=== PATIENT | male | born 1965 | race Caucasian/White ===

== ENCOUNTER → 2017-03-05 | Outpatient (CLI) | payer BC ==
--- NOTE | 2017-03-05 22:35 | PN ---
Ezequiel Allen is a 51-year-old male patient coming in for a yearly check regarding obstructive sleep apnea. Compliancy check and follow-up. He has severe JUAN JOSE with an AHI of 17 and currently on CPAP pressure of 9. Despite his 11 to 12 pounds weight loss. The patient states that he is snoring while on CPAP treatment and the treatment has not been as effective and he seems to be requiring higher pressure. On his compliance data, he is averaging around 7.6 hours of CPAP use every night and his CPAP use for more than 4 hours is more than 90%. He is utilizing an AirFit P10 nose pillow. He is wetting his CPAP every night. He is waking up refreshed, although he is expecting and anticipating better response. It is likely the pressure may need to be increased especially that he is snoring while on the treatment. No other complaints otherwise for now. BP is 113/65, pulse 61, respirations 16, temperature 97.6, saturation 98% on room air. Weight is 259. Height is 5 feet 11 inches BMI is 36.1. [place] score is 3. GENERAL APPEARANCE: Calm, comfortable. HEENT: Short neck, crowding posterior pharynx. There is no goiter, neck masses. LUNGS: Clear to auscultation. HEART: Sounds are regular rate and rhythm. Normal S1, S2. ABDOMEN: Soft, nontender. No organomegaly. EXTREMITIES: No edema. No cyanosis, or clubbing. IMPRESSION: 1. Symptomatic obstructive sleep apnea with an AHI of 17 currently on a CPAP pressure of 9. 2. Hypersomnia, probably related to suboptimal CPAP pressure. 3. Obesity. BMI is 36.1. PLAN: 1. I am going to increase the CPAP pressure up to 11 cm of water. 2. Continue the AirFit P10 nose mask. 3. Contact me back if there is no improvement in the symptoms. 4. If all measures fail, may consider repeating a CPAP titration.
== END | disposition home or self-care (01) ==
LOC: SLEEP 17:12
PROVIDERS: ATTEND Internal Medicine Critical Care Medicine
DX: G47.33 Obstructive sleep apnea (adult) (pediatric) (principal); G47.10 Hypersomnia, unspecified; E66.9 Obesity, unspecified; Z68.36 Body mass index [BMI] 36.0-36.9, adult

== ENCOUNTER → 2021-07-27 | Outpatient (CLI) | payer BC ==
[2021-07-27 15:13] LABS: Basophils # (A) 0.05 X 10*3/uL (0.00-0.10); Basophils % (A) 1.1 %; Eosinophils # (A) 0.17 X 10*3/uL (0.04-0.35); Eosinophils % (A) 3.6 %; HGB 16.1 g/dL (13.0-17.0); Lymphocytes # (A) 1.63 X 10*3/uL (0.90-5.00); Lymphocytes % (A) 34.3 %; MCH 30.1 pg (27.0-32.0); MCHC 32.2 g/dL (32.0-37.0); MCV 93.5 fL (80.0-97.0); Mean Platelet Volume 11.2 fL (9.5-12.2); Monocytes # (A) 0.53 X 10*3/uL (0.20-1.00); Monocytes % (A) 11.2 %; Neutrophils # (A) 2.36 X 10*3/uL (1.80-7.70); Neutrophils % (A) 49.6 %; Platelet Count 184 X 10*3/uL (140-440); RBC 5.35 X 10*6/uL (4.40-5.60); RDW 12.3 % (11.5-14.5); WBC 4.75 X 10*3/uL (4.50-10.00)
[2021-07-27 17:26] LABS: African American GFR (CKD) 77.3 (60.0-200.0); Albumin 4.5 g/dL (3.8-4.9); Albumin/Globulin Ratio 1.8 (1.60-3.17); Anion Gap 14.7 mmol/L (4.00-12.00); BUN/Creat Ratio 21.33 Ratio (12.00-20.00); Blood Urea Nitrogen 25.6 mg/dL (9.0-27.0); Calcium 9.3 mg/dL (8.7-10.3); Carbon Dioxide 22.3 mmol/L (21.6-31.8); Globulin 2.5 g/dL (1.6-3.3); Non-African American GFR(CKD) 66.7 (60.0-200.0); Potassium 4.6 mmol/L (3.5-5.5); Total Bilirubin 0.5 mg/dL (0.30-1.20)
[2021-07-27 19:12] LABS: Prostate Specific Antigen 3.9 ng/mL (0.00-3.50)
== END | disposition home or self-care (01) ==
LOC: LABWHC1 08:55
PROVIDERS: ATTEND Nurse Practitioner Adult Health
DX: E66.9 Obesity, unspecified (principal); E29.1 Testicular hypofunction
CPT/HCPCS: 36415; 80053; 84153; 84402; 84403; 85025

== ENCOUNTER 2021-12-06 08:53 | Day surgery (SDC) | payer BC ==
[2021-12-04 10:23] VITALS: BMI 40.1
[~2021-12-06 08:53] MED LIST: LACTATED RINGERS 1,000 ML IV SCH; LIDOCAINE 1% (10MG/ML) FOR IV START INTRADERMA PRN
[2021-12-06 09:29] VITALS: RESP 16; TEMP 97.3
[2021-12-06] MEDS ORDERED: PROPOFOL 10 MG/ML 20 ML VIAL IV ONE (10:11)
[2021-12-06] MEDS ORDERED: LIDOCAINE 1% INJ 10MG/ML (20 ML MDV) ONE (10:11)
--- NOTE | 2021-12-06 10:32 | P.PCN ---
Date of Procedure: 12/06/21 Procedure(s) Performed: BRIEF HISTORY: Patient is a 56-year-old pleasant male scheduled for an elective colonoscopy as a part of screening for colorectal neoplasia. PROCEDURE PERFORMED: Colonoscopy. PREOPERATIVE DIAGNOSIS: Screening for colon cancer. IV sedation per Anesthesia. PROCEDURE: After informed consent was obtained, the patient, was brought into the endoscopy unit. IV sedation was administered by Anesthesia under continuous monitoring. Digital rectal examination was normal. Initially the Olympus CF-160 flexible video colonoscope was then inserted in the rectum, gradually advanced into the cecum without any difficulty. Careful examination was performed as the scope was gradually being withdrawn. Ileocecal valve and the appendiceal orifice were visualized and appeared normal. Prep was excellent. Mucosa of the cecum, ascending colon, transverse colon, descending colon, sigmoid colon, and rectum appeared normal. Retroflexion was performed in the rectum and no lesions were seen. The patient tolerated the procedure well. IMPRESSION: Normal-appearing colon from rectum to cecum with no evidence of colorectal neoplasia. RECOMMENDATIONS: Findings of this examination were discussed with the patient well as his family. He was advised to have a repeat colonoscopy in 10 years..
[2021-12-06 10:54] VITALS: BP 112/67; PULSE 58
== END 2021-12-06 11:15 | disposition home or self-care (01) ==
LOC: ORWHC2ENDO 08:53
PROVIDERS: ATTEND Internal Medicine Gastroenterology
DX: Z12.11 Encounter for screening for malignant neoplasm of colon (principal); E78.5 Hyperlipidemia, unspecified; G47.33 Obstructive sleep apnea (adult) (pediatric); N40.0 Benign prostatic hyperplasia without lower urinary tract symptoms; Z79.899 Other long term (current) drug therapy
CPT/HCPCS: J2001; J2704; G0121

== ENCOUNTER 2024-07-29 06:07 | Day surgery (SDC) | payer BC ==
[2024-07-29] MEDS: IV FLUID CONTINUATION 1,000 ML IV ONE (06:33)
[2024-07-29 06:41] VITALS: TEMP 97.3
[2024-07-29 06:57] LABS: Glucose,Whole Blood 129 mg/dL (70-110)
[2024-07-29] MEDS ORDERED: HYDROmorphone 0.5 MG/0.5 ML SYRINGE IVP PRN (07:00)
[2024-07-29] MEDS: DEXAMETHASONE SOD PHOSPHATE 4 MG/ML 1 ML VIAL IV ONE (07:02)
[2024-07-29] MEDS: ONDANSETRON 4 MG/2 ML VIAL IVP ONE (07:03)
[2024-07-29] MEDS: FAMOTIDINE 20 MG/2 ML VIAL IV STA (07:03)
[2024-07-29] MEDS: LACTATED RINGERS 1,000 ML IV SCH (07:07)
[2024-07-29] MEDS ORDERED: MIDAZOLAM 2 MG/2 ML VIAL ONE (07:30)
[2024-07-29] MEDS: ceFAZolin 3 GM in SODIUM CHLORIDE 0.9% 100 ML IVPB PRN (07:30)
[2024-07-29] MEDS ORDERED: fentaNYL (PF) 50 MCG/ML 2 ML AMP ONE (07:30)
[2024-07-29] MEDS ORDERED: PROPOFOL 10 MG/ML 20 ML VIAL IV ONE (07:30)
[2024-07-29] MEDS: BUPIVACAINE (PF) 0.25% 30 ML VIAL SQ ONE (07:46)
--- NOTE | 2024-07-29 08:18 | P.OP ---
Date of Procedure: 07/29/24 Preoperative Diagnosis: Left flank cyst Postoperative Diagnosis: Left flank cyst Procedure(s) Performed: Excision of epidermal inclusion cyst of the left flank, measuring 4 x 2 cm Anesthesia: local Surgeon: Venessa Coles Pathology: other (Left flank cyst) Condition: stable Disposition: same day Indications for Procedure: 59-year-old male presents to the surgery clinic with complaint of cyst to the left flank. This has had I&D performed many years ago but has reoccurred and has increased in size. It is causing the patient discomfort. Plan is for excision of the cyst. Risks, benefits and alternatives provided to the patient. All questions answered. Operative Findings: 4 x 2 cm epidermal inclusion cyst Description of Procedure: Patient was brought to the operative suite and placed in supine position on operating table. Sedation was provided by anesthesia and the patient was prepped and draped in regular sterile fashion. Local anesthetic was administered. Elliptical incision was made around the cyst site and dissection was carried to the fatty layer below the cyst. The cyst was completely excised using cautery. Hemostasis was noted to be maintained. Wound was irrigated. Cyst measured 4 x 2 cm. Specimen was handed off and wound was closed with 2-0 nylon suture in mattress form. Sterile dressing was applied. The patient was awakened and taken to the postanesthesia care unit in stable condition. Splint digits were cut were correct x 2.
[2024-07-29 08:44] VITALS: RESP 16
[2024-07-29 08:45] VITALS: BP 108/68; PULSE 62
== END 2024-07-29 09:21 | disposition home or self-care (01) ==
LOC: OR 06:07
PROVIDERS: ATTEND Surgery
DX: L72.0 Epidermal cyst (principal); I10 Essential (primary) hypertension; E78.5 Hyperlipidemia, unspecified; I25.10 Atherosclerotic heart disease of native coronary artery without angina pectoris; G47.33 Obstructive sleep apnea (adult) (pediatric); E11.9 Type 2 diabetes mellitus without complications; F32.A Depression, unspecified; M19.90 Unspecified osteoarthritis, unspecified site; M10.9 Gout, unspecified; K21.9 Gastro-esophageal reflux disease without esophagitis; Z88.2 Allergy status to sulfonamides; Z91.030 Bee allergy status; Z79.02 Long term (current) use of antithrombotics/antiplatelets; Z79.84 Long term (current) use of oral hypoglycemic drugs; Z79.899 Other long term (current) drug therapy
CPT/HCPCS: 11406; J2250; J1100; J0690; J2405; J3010; J3490; J2704; J0665; 88304